=== PATIENT | female | born 1945 | race Caucasian/White ===

== ENCOUNTER → 2017-01-26 | Outpatient (CLI) | payer BC ==
[~2017-01-26] MED LIST: ADVIN25050 INH; ALBU1AER9 INH; CETI10TA84 PO; EFFSR75 PO; METF500T PO; MULT-506 PO; TRAZ50TA35 PO; VENL150C56 PO
== END | disposition home or self-care (01) ==
LOC: C.PAPS 09:15
PROVIDERS: ATTEND Obstetrics & Gynecology
DX: Z12.4 Encounter for screening for malignant neoplasm of cervix (principal)

== ENCOUNTER → 2017-02-26 | Outpatient (CLI) | payer BC ==
--- NOTE | 2017-02-26 15:22 | MAMMOGRAPHY REPORT ---
BILATERAL DIGITAL SCREENING MAMMOGRAM WITH CAD: 02/26/2017 TECHNIQUE: Current study was also evaluated with a Computer Aided Detection (CAD) system. Bilateral CC and MLO and left X CCL views were obtained. COMPARISON: Comparison is made to exams dated: 01/10/2016 mammogram, 09/21/2014 mammogram, 09/21/2014 s tereotactic biopsy, 09/10/2014 mammogram, 09/04/2014 mammogram, and 08/31/2013 mammogram - [facility]. BREAST COMPOSITION: There are scattered areas of fibroglandular density in both breasts. FINDINGS: No suspicious masses, calcifications, or areas of architectural distortion are noted in ei ther breast. There has been no significant interval change compared to prior exams. Biopsy marker cl ips are again noted in the right 12:00 breast and right upper outer quadrant. Bilateral benign-appea ring calcifications are not significantly changed. IMPRESSION: ACR BI-RADS CATEGORY 2: BENIGN There is no mammographic evidence of malignancy. A 1 year screening mammogram is recommended. The pa tient will receive written notification of the results. Approximately 10% of breast cancers are not detected with mammography. A negative mammographic report should not delay biopsy if a clinically suggestive mass is present. Demetra Moya M.D. ah/:02/26/2017 12:14:24 Leather Fitter: Kayy RODRÍGUEZ(Jerzy)(M), [facility] letter sent: Normal 1/2 BI-RADS Code: ACR BI-RADS Category 2: Benign
== END | disposition home or self-care (01) ==
LOC: C.MAMM 10:21
PROVIDERS: ATTEND Obstetrics & Gynecology
DX: Z12.31 Encounter for screening mammogram for malignant neoplasm of breast (principal)

== ENCOUNTER → 2017-09-04 | Outpatient (CLI) | payer BC ==
--- NOTE | 2017-09-04 14:37 | DIAGNOSTIC IMAGING REPORT ---
CHEST 2 VIEWS ROUTINE CLINICAL HISTORY: COUGH +PPD COMPARISON STUDY: 09/16/2012 FINDINGS: The heart is normal in size. There is mild aortic tortuosity/ectasia. Mild mid mediastinal prominence, is likely vascular. There is no failure. There is no lobar consolidation. There are no pleural effusions.[ IMPRESSION: AP portable study. No acute findings. Electronically signed by: Brady Reeder M.D. 09/04/2017 2:36 PM Dictated Date/Time: 09/04/2017 2:35 PM
== END | disposition home or self-care (01) ==
LOC: C.RAD 14:22
PROVIDERS: ATTEND Family Medicine
DX: R05 Cough (principal); R09.89 Other specified symptoms and signs involving the circulatory and respiratory systems

== ENCOUNTER 2022-03-16 09:39 | Observation (INO) ==
--- NOTE | 2022-03-10 14:44 | Anesthesiology Consultation ---
Date of Service March 10, 2022 Assessment & Plan (1) Encounter for pre-operative examination: - frequent rescue inhaler use, hx DM. Will attempt to obtain copy of most recent PCP note. - COVID screening: Per regional account executive on 03/06/2022: Travel screen negative, no known COVID-19 positive contacts or current COVID-19 related symptoms in past 2 weeks. Pt vaccinated. Surgeon arranging preop COVID testing, scheduled 03/12/2022. Awaiting results. Chart Review Chart Review: Pending: Refer to Additional Notes / Consult section and Patient NOT seen in Pre Admission Testing History Surgery Operation Date: 03/16/22 11:50 Proposed Procedures p Panniculectomy - Chelsea Winters MD Height/Weight Height: 5 ft 2 in Weight: 77.111 kg Allergies Allergy/AdvReac Type Severity Reaction Status Date / Time caffeine Allergy Mild SEVERE Verified 03/06/22 08:37 VERTIGO chocolate flavor Allergy Mild SEVERE Verified 03/06/22 08:37 VERTIGO/SLURRED SPEECH peanut Allergy Mild VOMITTING Verified 03/06/22 08:37 Medications Home Medications Medication Instructions Recorded Confirmed Last Taken albuterol sulfate 90 mcg/actuation 2 puff INHALATION QID PRN 07/27/18 03/06/22 Unknown aerosol inhaler (ProAir HFA) ascorbic acid (vitamin C) 500 mg 1,000 mg PO QAM 07/27/18 03/06/22 09/05/18 tablet (Vitamin C) cholecalciferol (vitamin D3) 50 2,000 unit PO QAM 07/27/18 03/06/22 09/05/18 mcg (2,000 unit) capsule (Vitamin D3) cyanocobalamin (vitamin B-12) 2,500 mcg PO QAM 07/27/18 03/06/22 09/05/18 1,000 mcg capsule venlafaxine 150 mg 150 mg PO QAM 07/27/18 03/06/22 09/06/18 07:15 capsule,extended release 24 hr (Effexor XR) venlafaxine 37.5 mg 37.5 mg PO QAM 07/27/18 03/06/22 09/06/18 07:15 capsule,extended release 24 hr (Effexor XR) vitamin E 100 unit capsule 100 unit PO QAM 07/27/18 03/06/2208/15/18 blood sugar diagnostic (OctaviaTouch #10 ea 04/11/19 03/04/22 Unknown Verio test strips) lancets 33 gauge (Sylvie Delica #100 ea 04/11/19 03/04/22 Unknown Lancets) lisdexamfetamine 20 mg capsule 20 mg PO QAM 03/04/22 03/06/22 Unknown (Vyvanse) oxycodone-acetaminophen 5 mg-325 1 tab PO Q4H PRN 3 Days #18 tab 03/04/22 03/06/22 Unknown mg tablet (Percocet) mirtazapine 15 mg tablet 15 mg PO HS 03/06/22 03/06/22 Unknown Past Medical History Medical History Anxiety Asthma USES RESCUE INHALER FREQUENTLY-LAST TIME YESTERDAY Attention deficit disorder (ADD) Depression Diabetes mellitus, type 2 PAST HISTORY (NO LONGER HAS) History of herpes zoster Hypertension PT DENIES-NO MEDS Migraine HX Rheumatic fever A CHILD Sleep apnea NO DEVICE USED NOW (CPAP USED IN PAST) Past Family History Family History Father Family history of diabetes mellitus Asthma Coronary heart disease Family/Other Family history of diabetes mellitus Mother Family hx of colon cancer Colorectal cancer Daughter Cystic fibrosis Past Surgical History Surgical History History of adenoidectomy History of bilateral tubal ligation History of breast biopsy History of cataract surgery R/L History of colonoscopy History of tonsillectomy History of tooth extraction Hx of LASIK Social History Smoking Status: Former smoker Smoking cigarettes per day: Do You Dip or Chew Tobacco: No Smoking End Date: QUIT IN HER 20'S Hx Alcohol Use: No Hx Substance Use: No substance use type: does not use Testing Electrocardiogram Date: 03/09/22 NSR, rate [address] abnormality Chest X-Ray Date: 10/06/21 Frontal and lateral radiographs of the chest demonstrate the cardiomediastinal silhouette to be within normal limits. The lungs are clear of alveolar opacities. There is no evidence for effusion bilaterally. There is no evidence for vascular congestion. There is no acute osseous pathology. IMPRESSION: No acute cardiopulmonary disease. No radiographic evidence for tuberculosis.
[~2022-03-16 09:39] MED LIST changes: -ADVIN25050 INH; -ALBU1AER9 INH; -CETI10TA84 PO; -EFFSR75 PO; +LIDOCAINE 2% 20 MG/ML 5 ML SYR IV ONE; +LR 15ML/HR IV SCH; -METF500T PO; +MIDAZOLAM HCL 1 MG/ML 2ML VIAL ONE; -MULT-506 PO; +ONDANSETRON INJ 2 MG/ML 2 ML VIAL ONE; +PROPOFOL IV EMULSION 10 MG/ML 20 ML VIAL IV ONE; +ROCURONIUM BROMIDE 10 MG/ML 5 ML VIAL IV ONE; -TRAZ50TA35 PO; -VENL150C56 PO; +fentaNYL citrate 100 MCG/2 ML VIAL ONE
[2022-03-16] MEDS ORDERED: fentaNYL citrate 100 MCG/2 ML VIAL IV PRN (10:16)
[2022-03-16] MEDS ORDERED: ePHEDrine sulfate 50 MG/ML AMP IV PRN (10:16)
[2022-03-16] MEDS ORDERED: ONDANSETRON INJ 2 MG/ML 2 ML VIAL IV PRN ×2 (10:16→16:11)
[2022-03-16] MEDS ORDERED: ATROPINE SULFATE 0.1 MG/ML 10ML SYR IV PRN (10:16)
--- NOTE | 2022-03-16 10:56 | History & Physical Bridge Note ---
Date of Service March 16, 2022 History & Physical Bridge Note I have examined the patient, reviewed the History & Physical and in the interval since the performance of the History & Physical I have noted the following changes of clinical significance: no changes noted
[2022-03-16] MEDS ORDERED: ceFAZolin 2,000 MG/15 ML IV PUSH IV ONE (11:15)
[2022-03-16] MEDS ORDERED: BUPIVACAINE 0.25% 30 ML VIAL ONE (11:22)
[2022-03-16] MEDS ORDERED: NEOSTIGMINE METHYLSULFATE 1 MG/ML 10ML VIAL ONE (11:41)
[2022-03-16] MEDS ORDERED: GLYCOPYRROLATE 0.2 MG/ML VIAL ONE (11:41)
[2022-03-16] MEDS ORDERED: ACETAMINOPHEN 1000 MG/100 ML IV IV ONE (12:18)
[2022-03-16] MEDS ORDERED: TISSEEL FIBRIN SEALANT 10ML TOP ONE (13:30)
[2022-03-16] MEDS ORDERED: fentaNYL citrate 100 MCG/2 ML VIAL ONE (13:45)
--- NOTE | 2022-03-16 14:03 | Post Operative Brief Note ---
PG Immediate Post Op with CF Date of Surgery March 16, 2022 Pre & Post Diagnosis Operation Date: 03/16/22 11:50 Pre-Op Diagnosis: Abdominal Pannus Post-Op Diagnosis: Abdominal Pannus I identified the patient and participated in the time-out.: Yes Procedure Operation Date: 03/16/22 11:50 Actual Procedures p Panniculectomy(Not Applicable) - Chelsea Winters MD Surgeon Chelsea Winters MD User Experience Developer Yasemin Alejandro PA-C Estimated Blood Loss 20 Findings Consistent with Post-Op Diagnosis Specimens Specimen Description: A. Abdominal Pannus Drains Wheatley Catheter
--- NOTE | 2022-03-16 14:16 | Operative Report ---
PG Post Operative Report Pre & Post Diagnosis Operation Date: 03/16/22 11:50 Pre-Op Diagnosis: Abdominal Pannus Post-Op Diagnosis: Abdominal Pannus I identified the patient and participated in the time-out.: Yes Procedure Operation Date: 03/16/22 11:50 Actual Procedures p Panniculectomy(Not Applicable) - Chelsea Winters MD Surgeon Chelsea Winters MD Rules Examiner Yasemin Alejandro PA-C Estimated Blood Loss 20 Findings Consistent with Post-Op Diagnosis Specimens abdominal pannus Drains SHAI x2 Anesthesia Type General Complications none Indications abdominal pannus, chronic intertrigo Description of Procedure Risks, benefits, and alternatives of the procedure were explained to the patient who agreed and signed consent. She was identified and marked in the preoperative holding area. She was brought to the operating room where she was positioned supine and placed under general anesthesia without incident. Wheatley catheter was placed. Surgical site was prepped and draped sterilely. A time-out procedure was performed. I reassessed my markings which included a lower horizontal abdominal incision with the midportion 8 cm above the vulvar commissure. Incision was marked bilaterally to the ASIS. I began by injecting 1% lidocaine with epinephrine along the planned incision. The lower abdominal incision was made using a 15- blade scalpel to incise epidermis and superficial dermis followed by electrocautery to incise deep dermis, subcutaneous fat, Julian's fascia down to the abdominal wall. Care was taken to bevel superiorly in order to avoid encountering the inguinal region. Electrocautery was used to elevate the anterior abdominal skin flap ligating the perforating vessels with 3-0 Vicryl ties and electrocautery. Dissection was carried up to the level of the umbi licus in the midline. At this point, a 15-blade scalpel was used to circumscribe the umbilicus. A vertical midline incision was then made from the incision to the umbilicus and divided in the midline using electrocautery. The umbilicus was then dissected out using electrocautery down to abdominal wall. The umbilical stalk appeared viable throughout the procedure. In order to facilitate inset of the umbilicus, dissection was continued for about an additional 6 cm superior to the umbilicus. At this point, the bed was flexed and the mid portion of the superior skin flap was inset above the mons pubis using 2-0 Vicryl suture. Skin flaps were marked for excision. A 15-blade scalpel was used to make these incisions and the incision was deepened through dermis, subcutaneous fat, Julian's fat using electrocautery. Prior to closure, a total of 10 mL of 0.25% Marcaine plain were injected into the fascia as well as along the incisions. A 15 Azeri Wil drains were placed in the wound bed and brought out through a separate stab incision in the mons pubis. Tisseel was sprayed to aid in hemostasis, prevent seroma formation and promote flap adherence. The drains were sutured into place using 3-0 nylon. The umbilicus was brought out through an inverted triangular incision in the abdominal wall. Wound closure was then begun lateral to medial using 2-0 Vicryl Julian's fascia sutures, 2-0 Vicryl deep dermal sutures, 2-0 PDO running superficial Quill suture, 3-0 Monocryl running subcuticular suture. Umbilicus was brought out through the inverted triangle incision and was sutured into place using 4-0 chromic half buried horizontal mattress sutures. The umbilicus was dressed using Xeroform. A Provena vac was used to dress the wound to take tension off the closure and reduce swelling. The procedure was tolerated well. The patient was awakened and transferred to recovery in satisfactory condition. Yasemin Alejandro was present and scrubbed throughout the entire procedure and was instrumental in providing retraction of the pannus and assisting in simultaneous wound closure. I attest to the content of the Intraoperative Record and any orders documented therein. Any exceptions are noted below.
--- NOTE | 2022-03-16 14:46 | Anesthesiology Progress Note ---
Date of Service March 16, 2022 Anesthesia Post Procedure Vital Signs Vital Signs: Temp Pulse Resp BP Pulse Ox O2 Del Method 03/16/22 10:18 98.4 F 85 20 155/81 H 96 Room Air 03/16/22 10:18 Room Air Transfer of Care Handoff Completed per policy Notes Mental Status: alert / awake / arousable and participated in evaluation Patient Amnestic to Procedure: Yes Nausea / Vomiting: adequately controlled Pain: adequately controlled Airway Patency, RR, SpO2: stable & adequate BP & HR: stable & adequate Hydration State: stable & adequate Anesthetic Complications: no major complications apparent and Pt Satisfied with anesthetic care
[2022-03-16] MEDS ORDERED: diphenhydrAMINE 50 MG/ML VIAL IV PRN (16:11)
[2022-03-16] MEDS ORDERED: diphenhydrAMINE Capsule 25 MG CAP PO PRN (16:11)
[2022-03-16] MEDS ORDERED: MoRPHine SULFATE 4 MG/ML 1 ML CARP\\VIAL IV PRN (16:11)
[2022-03-16] MEDS ORDERED: PROMETHAZINE HCL 12.5 MG in SODIUM CHLORIDE 0.9% 50 ML IV PRN (16:11)
[2022-03-16] MEDS ORDERED: ALBUTEROL HFA 8 GM INHALER INH PRN (16:11)
[2022-03-16] MEDS ORDERED: oxyCODONE/ACETAMINOPHEN 5mg/325mg TAB PO PRN ×2 (16:11)
[2022-03-16] MEDS ORDERED: MoRPHine SULFATE 2 MG/ML CARP IV PRN (16:11)
[2022-03-16] MEDS: D5W AND 1/2NSS 1,000 ML IV SCH (17:01)
[2022-03-16] MEDS: ACETAMINOPHEN 325 MG TAB PO PRN (17:01)
[2022-03-16] MEDS: ceFAZolin 2000MG 2,000 MG/15 ML SYR IV SCH (20:35)
[2022-03-16] MEDS ORDERED: MIRTAZAPINE TAB 15 MG TAB PO SCH (21:00)
[2022-03-17] MEDS: ACETAMINOPHEN 325 MG TAB PO PRN ×2 (01:31→12:51)
[2022-03-17] MEDS: D5W AND 1/2NSS 1,000 ML IV SCH ×2 (01:56→11:40)
[2022-03-17] MEDS: ceFAZolin 2000MG 2,000 MG/15 ML SYR IV SCH (04:18)
[2022-03-17] MEDS ORDERED: ceFAZolin 2000MG 2,000 MG/15 ML SYR IV SCH (06:00)
[2022-03-17] MEDS ORDERED: MULTIVITAMIN TAB PO SCH (09:00)
[2022-03-17] MEDS ORDERED: VENLAFAXINE HCL XR 37.5 MG CAPXR PO SCH (09:00)
[2022-03-17] MEDS ORDERED: VENLAFAXINE HCL XR 150 MG CAPXR PO SCH (09:00)
[2022-03-17 09:04] LABS: BUN Creatinine Ratio 10.1 (10-20); Calcium 7.6 mg/dl (8.5-10.1); Creatinine Clr Calc Pharmacy 37.2 ml/min; Est GFR (African American) 47.2 ml/min; Est GFR (Non-African American) 40.8 ml/min; Potassium 3.4 mmol/L (3.5-5.1)
--- NOTE | 2022-03-17 09:06 | Surgery Progress Note ---
Date of Service March 17, 2022 Assessment & Plan (1) S/P panniculectomy: Plan: Opal is 1 day post-op. She is doing well. Her pain is controlled. She denies nausea and reports that she is hungry this morning. Wheatley catheter was removed this morning without issue. Opal has not urinated on her own yet. Bloodwork still pending this AM. Per nursing, Josephs O2 drops to upper 80s when 2L is removed. Nursing will continue to monitor this. Opal is aware that she will need to have oxygen removed, ambulate on her own and void on her own without issue before discharge. If she is able to accomplish these items she is able to be discharged to home. Return precautions were reviewed and discharge instructions were reviewed. Opal does have a follow-up scheduled in our office for tomorrow morning. Her nurse, Enmanuel, will keep me updated with her progress throughout the day. Admission and Anticipated Discharge Date Admission Date: March 16, 2022 Subjective Opal is resting comfortably in her bed this morning. She reports that her abdomen is a bit sore, but that her pain is well-controlled. She denies any nausea. She reports that she is hungry this morning. Wheatley was removed this morning and Opal has not urinated on her own yet. Physical Exam Physical Exam: On physical exam- abdominal binder in place- removed to reveal wound vac. Wound vac is holding suction nicely. No signs of active bleeding. [address] with serosang output- no evidence of clot formation in drains. Abdominal binder reattached. Results & Data ([facility]) Vital Signs (Past 12 Hours) Vital Signs Temp Pulse Resp BP Pulse Ox O2 Del Method O2 Flow Rate 03/17/22 08:16 36.8 C 67 16 98/61 L 95 03/17/22 02:06 36.5 C 65 16 105/66 99 Nasal Cannula 2 03/16/22 21:42 36.5 C 61 15 108/69 98 Nasal Cannula 2 PG Care Time/CCT Total # of Minutes Spent Total Time Spent with Patient: Total time spent is greater than 50% in coordination of care (as documented) at patient's floor/unit and/or counseling patient: Coding Level of Care Code None Diagnoses S/P panniculectomy Z98.890
[2022-03-17] MEDS ORDERED: ENOXAPARIN INJ 40 MG/0.4 ML SYR SQ SCH (12:30)
--- NOTE | 2022-03-17 17:29 | Discharge Summary ---
Date of Service March 17, 2022 Admission HPI Per Admitting Provider Please see admission H and P. Admission Exam Per Admitting Provider Please see admission H & P. Principal Diagnosis Abdominal Pannus Discharge Exam On physical exam- abdominal binder in place- removed to reveal wound vac. Wound vac is holding suction nicely. No signs of active bleeding. [address] with serosang output- no evidence of clot formation in drains. Abdominal binder reattached. Discharge Data Allergies Allergy/AdvReac Type Severity Reaction Status Date / Time caffeine AdvReac Mild SEVERE Verified 03/16/22 10:13 VERTIGO chocolate flavor AdvReac Mild SEVERE Verified 03/16/22 10:13 VERTIGO/SLURRED SPEECH peanut AdvReac Mild VOMITTING Verified 03/16/22 10:13 Procedures Performed Operation Date: 03/16/22 11:50 Actual Procedures p Panniculectomy(Not Applicable) - Chelsea Winters MD Hospital Course (1) S/P panniculectomy: Opal is a 76-year-old female with abdominal pannus. She was taken to the OR for panniculectomy. There were no intraoperative complications. Prevena wound vac was placed intraoperatively as well as 2 SHAI drains. Following surgery, Opal was admitted for overnight observation to med/surg floor. On POD #1 she was feeling well. She admitted to some soreness of her abdomen. She denied any post-op nausea. She was able to void on her own, ambulate both in her room and in the hallways without assistance. She tolerated a regular diet. Post-op labs were drawn. Her post-op Cr was 1.29. She did require 2L of O2 post-op. Prior to discharge her vital signs were BP 105/64; Pulse 78; Respirations 18; Temp 37 degrees celsius; POx 95% on room air. Her prevena wound vac was in place and holding excellent suction. 2 SHAI draings were in place with serosang drainage. No signs of active bleeding on exam prior to discharge. She was deemed acceptable for discharge to home with assistance of her friend who will be with her as she continues to heal and recover at home. She has a follow-up appointment in our office tomorrow. Return precautions were reviewed. Discharge instructions, including restrictions reviewed with Opal. She was encouraged to call our [facility] office with any questions or concerns. Total Time Total Time Spent Total Time Spent (In Minutes): 15 Discharge Plan Discharge Items Patient Disposition: Home - Self-Care Reason For Visit: Abdominal Pannus Discharge Diagnosis: Abdominal Pannus Activity: As commented below Non-emergency contact: Surgeon Call non-emergency contact if: you have any medication questions, your pain is not controlled, your temperature is above 101.5, your wound has increased redness and your wound has increased drainage Follow-up/Referrals: Chelsea Winters MD [Physician] - 03/18/22 11:00 am Vladimir Naik MD [Primary Care Provider] - Diet: Regular Addtl Attending Provider Instructions: ACTIVITY RECOMMENDATIONS: __Normal activities X__No bending, lifting or straining __No driving _X_Driving allowed when you are off pain medications _X_Walking permitted X__You should have help at home for at least the next 1 week. DRESSINGS: __No dressings required _X_Keep wound dry/in place until first office visit __Remove dressings ___ and leave dressings off __Apply ice ___ days __Remove dressings and reapply garment __Apply antibiotic ointment (Bacitracin, Neosporin, etc) to wounds 3-4 times/day for 10 days BATHING: X__Keep dressings dry X__Sponge bathing permitted __Showering permitted X__No swimming, hot tubs or soaking in a tub MEDICATIONS: Resume previous medications unless instructed otherwise by your surgeon. X__Do not use aspirin, Motrin, Advil or Ibuprofen as these may promote bleeding. Please use Tylenol. X__Prescription(s) provided: Prescription for post-op pain medication provided to patient at her last office visit. Please use as prescribed. OTHER INSTRUCTIONS: _X_Record drain output 2-3 times per day SPECIAL CARE INSTRUCTIONS: * It is normal to have a mild fever after surgery. If your temperature is higher than 101.5 degrees F, please call the office at [phone]. * Constipation is a typical side effect of pain medication. An [id number] stool softener will help relieve this. * Leaking around surgical drains may occur and should not cause concern. Sometimes these drains become clogged. If this happens, remove the bulb and milk the clot out of the tube, then replace the bulb. * Drainage from wounds after liposuction is normal and should be expected. Garments will become soiled. You should protect furniture and bedding. This drainage should mostly subside within 2-3 days. Leave garments in place unless instructed to remove them. * If you have unusual drainage from a wound or are concerned you have an infection or have any questions or concerns, please call the office at [phone]. FOLLOW UP VISIT: If not already scheduled, please call the office, , when you return home after surgery to schedule an appointment to be seen in _1__ day. Pending Studies at Discharge: Yes Studies:: Pathology report. Stand-Alone Forms: [facility], Opioid Pain Management, Smoking Cessation Medications and DC Order Prescriptions: Continued Vyvanse 20 mg capsule 20 mg PO QAM oxycodone-acetaminophen [Percocet] 5-325 mg tablet 1 tab PO Q4H PRN (Reason: pain) 3 Days Qty: 18 0RF Rx Instructions: Initial therapy. (DME) lancets [OneTouch Delica Lancets] 33 gauge misc See Dose Instructions .ROUTE .MEDSUPPLY Qty: 100 Rx Instructions: As directed (DME) OneTouch Verio test strips strip See Dose Instructions .ROUTE .MEDSUPPLY Qty: 10 Rx Instructions: As directed venlafaxine [Effexor XR] 37.5 mg Capsule,Extended Release 24hr 37.5 mg PO QAM vitamin E 100 unit Capsule 100 unit PO QAM Hold Instructions: SURGERY venlafaxine [Effexor XR] 150 mg Capsule,Extended Release 24hr 150 mg PO QAM ascorbic acid (vitamin C) [Vitamin C] 500 mg Tablet 1,000 mg PO QAM Hold Instructions: SURGERY albuterol sulfate [ProAir HFA] 90 mcg/actuation Hfa Aerosol Inhaler 2 puff INHALATION QID PRN (Reason: Shortness Of Breath) cholecalciferol (vitamin D3) [Vitamin D3] 2,000 unit Capsule 2,000 unit PO QAM Hold Instructions: SURGERY cyanocobalamin (vitamin B-12) 1,000 mcg Capsule 2,500 mcg PO QAM Hold Instructions: SURGERY mirtazapine [Remeron] 15 mg Tablet 15 mg PO HS Discharge Orders: Discharge Order (Routine); Ordered 03/17/22 Ordered By: Larissa Machuca Admission Data Admit Date/Time: 03/16/22 14:16 Attending Provider: Chelsea Winters Admit Provider: Chelsea Winters Primary Care Provider: Vladimir Naik Other Interventions: Discharge Summary Assessment (RN) Last Done: 03/17/22 13:43 Coding Level of Care Code 81050 OBS Care - Discharge Diagnoses S/P panniculectomy Z98.890
== END 2022-03-17 15:13 | disposition home or self-care (01) ==
LOC: ASU 09:39 → 3N 09:39